=== PATIENT | male | born 1965 | race Caucasian/White ===

== ENCOUNTER 2017-03-30 07:39 | Day surgery (SDC) | payer BC ==
[~2017-03-30] VITALS: Ht 185.4 cm; Wt 145.1 kg
[2017-03-30] MEDS ORDERED: CATAPRES0.1 MG PO (08:51)
[2017-03-30] MEDS ORDERED: NORVASC10 MG PO (08:51)
[2017-03-30] MEDS ORDERED: HYZAAR 100-25 T1 TAB PO (08:51)
[2017-03-30] MEDS ORDERED: NAPROSYN500 MG PO (08:52)
[2017-03-30 08:56] VITALS: BP 152/95; Ht 185.4 cm; Wt 145.1 kg
[2017-03-30 09:07] LABS: HEMATOCRIT 43.5 % (42.0-54.0); HEMOGLOBIN 15.3 g/dL (13.5-17.5); MCH 32.3 pg (26.0-34.0); MCHC 35.2 g/dL (31.0-37.0); MEAN PLATELET VOLUME 9.3 fL (7.4-10.4); RBC 4.73 10x6/uL (4.20-6.10); RDW 12.7 % (11.5-14.5); WBC 6.1 10x3/uL (4.8-10.8)
--- NOTE | 2017-03-30 16:15 | NUR ---
1410 BACK FROM LT NOSE EXCISION. RESP EVEN AND NONLABORED. AREA OOZING AND APPLIED 2 X2 AND AREA CLOTTING. INSTRUCTED NOT TO RUB NOSE. DENIES PAIN OR NAUSEA.
--- NOTE | 2017-03-30 16:23 | NUR ---
1510 V/S STABLE. NO CHANGES ON NOSE AREA WITH NO BLEEDING SUTURES INTACT.
--- NOTE | 2017-03-30 16:23 | NUR ---
1440 NOSE AREA BLOTTED AND CLOTTED. NO BLEEDING. TOLERATING FULL LIQUIDS.
--- NOTE | 2017-03-30 16:24 | NUR ---
1525 IV DCD CATHETER INTACT. DISCHARGE INSTRUCTIONS GIVEN AND VERBALLY UNDERSTANDS. SCRIPTS GONE OVER AND APPOINTMENT VERBALLY UNDERSTANDS.
--- NOTE | 2017-03-30 16:25 | NUR ---
1530 TO HOME VIA W/C WITH FAMILY.
--- NOTE | 2017-04-02 15:54 | OP ---
PATIENT NAME: VERN OBANDO MEDICAL RECORD: [id number] :63 LOCATION:D.OPS ADMISSION DATE: SURGEON: ASHLIE WOLF MD DATE OF OPERATION: 03/30/2017 PREOPERATIVE DIAGNOSIS: Basal cell carcinoma of the left nasal ala. POSTOPERATIVE DIAGNOSIS: Basal cell carcinoma of the left nasal ala. PROCEDURE: 1. Wide local excision of carcinoma, left side of the nose. 2. Bilobed rotation flap closure of left nasal defect. SURGEON: Ashlie Wolf MD. ANESTHESIA: General orotracheal. BLOOD LOSS: 2 cc. SPECIMENS: Left nasal ala lesion, suture at 12 o'clock. Frozen section margins are all negative. DRAINS: None. COMPLICATIONS: None. DISPOSITION: Recovery stable. DESCRIPTION OF PROCEDURE: The patient was brought to the operating room and placed in supine position, sedated and intubated by anesthesia. Head was turned to the left. Left side of face was prepped and draped in usual sterile fashion. The lesion was about 14 mm in diameter fairly round, very bulbous, probably at least 8 mm thick, very well demarcated borders. An incision was made using a 15 blade with margins around the entire lesion, like almost a circular lesion. This was taken full thickness down to the cartilage of the nose. I then dissected off with the scissors, silk suture was used to lynda the specimen at 12 0'clock, it was sent for path. All margins were negative. The circumference of the wound was undermined, at first with a 15 blade and then with scissors to undermine widely for flap closure as the defect was over 1.5 cm. The marking pen was used to lynda a bilobed rotation flap base to superior and lateral to the defect. This was cut with a 15 blade and then flaps were undermined again with a 15 blade and with the scissors. This was rotated into position. The landmarks of the flap were approximated using 5-0 subcutaneous Vicryl, rotating the flap into position and then throughout the entire flap. The 5-0 Vicryl subcutaneous sutures were used to approximate all the skin edges. The skin was then closed using interrupted 6-0 Prolene. The flap looked very good, only a small amount of bleeding during the case that was controlled with the bipolar cautery. Mupirocin ointment was applied. He was awakened, extubated and transported to recovery in good condition. No complications. TRANSINT:[id number] Voice Confirmation ID: [id number] DOCUMENT ID: [id number] OPERATIVE REPORT [id number] TOPHER,ASHLIE BOWEN MD at 1554 CC: [id number] DICTATION DATE: 03/30/17 1339 [place] [place] SPOTTER: 03/30/175 [facility] 03/30/17 [place] [id number]
--- NOTE | 2017-04-02 15:54 | HP ---
PATIENT: VERN OBANDO MEDICAL RECORD: [id number] ACCOUNT: [id number] LOCATION:[facility]ON[facility] : 63 ADMISSION DATE: 03/30/17 HISTORY AND PHYSICAL EXAMINATION Preoperative History and Physical HISTORY OF PRESENT ILLNESS: Mr. Obando is a 52-year-old male with an enlarging lesion on the left side of his nose, biopsy proven to be a basal cell carcinoma. He has been admitted for excision of lesion, large basal cell from the left alar rim and flap reconstruction. PAST SURGICAL HISTORY: Includes hypertension. CURRENT MEDICATIONS: Unknown blood pressure medication. ALLERGIES: No known drug allergies. PHYSICAL EXAMINATION: FACE: He has a lesion consistent with basal cell carcinoma on the base of the left alar rim. EYES: Normal. EARS: Canals and TMs are normal. NOSE: Intranasal exam, no masses or lesions. ORAL CAVITY AND OROPHARYNX: Normal. NECK: No masses, no adenopathy. CHEST: Clear. CARDIOVASCULAR: Regular rate and rhythm, no murmur. EXTREMITIES: Normal. IMPRESSION: Basal cell carcinoma, left alar rim. PLAN: Wide local excision with flap repair. TRANSINT:[id number] Voice Confirmation ID: [id number] DOCUMENT ID: [id number] ASHLIE FREDERICK MD at 1554 CC: [id number] DICTATION DATE: 03/29/17 1131 XRAY TECH: 03/29/17 1155 [facility] 03/30/17 [place] [id number] [place] [id number]
== END 2017-03-30 15:35 | disposition home or self-care (01) ==
LOC: D.OPS 07:39 → D.PAN 09:45 → D.OPS 09:45 → D.PAN 10:00 → D.OPS 10:50
PROVIDERS: Anesthesiology
DX: C44.311 Basal cell carcinoma of skin of nose (principal); I10 Essential (primary) hypertension; E66.01 Morbid (severe) obesity due to excess calories; Z68.41 Body mass index [BMI] 40.0-44.9, adult; Z01.812 Encounter for preprocedural laboratory examination